=== PATIENT | male | born 1995 | race Caucasian/White ===

== ENCOUNTER 2017-02-28 21:25 | Emergency (ER) | payer OTHER ==
[~2017-02-28] VITALS: Ht 182.9 cm; Wt 128.1 kg
--- NOTE | 2017-02-28 21:40 | ED.ADGEN ---
Past History Past Medical History: Anxiety Past Surgical History: No Surgical History Alcohol Use: None Drug Use: None Adult General Chief Complaint Chief Complaint " I ve been short of breath all day.." HPI HPI Patient is a 22 year old male who presents with above hx and complaints of dyspnea. Pt. denies any trauma. Patient denies any ill contacts. Patient denies any travel. Patient denies previous history of asthma, bronchitis or cardiac conditions. Patient denies any recent fever and chills. Patient normally follows with Dr. Shea . There is family history of pulmonary embolisms with his father. Review of Systems Review of Systems Constitutional: Denies fever or chills [] Eyes: Denies change in visual acuity, redness, or eye pain [] HENT: Denies nasal congestion or sore throat [] Respiratory: Denies cough . Complaints of shortness of breath [] Cardiovascular: No additional information not addressed in HPI [] GI: Denies abdominal pain, nausea, vomiting, bloody stools or diarrhea [] : Denies dysuria or hematuria [] Musculoskeletal: Denies back pain or joint pain [] Integument: Denies rash or skin lesions [] Neurologic: Denies headache, focal weakness or sensory changes [] Endocrine: Denies polyuria or polydipsia [] All other systems were reviewed and found to be within normal limits, except as documented in this note. Family History Family History Father had Pulmonary Embolisms Current Medications Current Medications Current Medications Medications (Trade) Dose Ordered Sig/Gera Start Time Stop Time Status Last Admin Dose Admin Aspirin (Children'S Aspirin) 324 mg 1X ONCE 02/28/17 22:00 02/28/17 22:01 DC 02/28/17 22:12 324 MG Enoxaparin Sodium (Lovenox 150mg Syringe) 130 mg 1X ONCE 02/28/17 22:00 02/28/17 22:01 DC Sodium Chloride 1,000 ml @ 1,000 mls/hr Q1H 02/28/17 21:41 02/28/17 22:40 DC 02/28/17 22:12 1,000 MLS/HR Allergies Allergies Allergies Coded Allergies Type Severity Reaction Last Updated Verified Penicillins Allergy Intermediate rash 01/26/16 Yes Physical Exam Physical Exam Constitutional: Well developed, well nourished, no acute distress, non-toxic appearance. [] HENT: Normocephalic, atraumatic, bilateral external ears normal, oropharynx moist, no oral exudates, nose normal. [] Eyes: PERRLA, EOMI, conjunctiva normal, no discharge. [] Neck: Normal range of motion, no tenderness, supple, no stridor. [] Cardiovascular:Heart rate regular rhythm, no murmur [] Lungs & Thorax: Bilateral breath sounds equal and few scattered wheezes on auscultation [] Abdomen: Bowel sounds normal, soft, no tenderness, no masses, no pulsatile masses. [] Skin: Warm, dry, no erythema, no rash. [] Back: No tenderness, no CVA tenderness. [] Extremities: No tenderness, no cyanosis, no clubbing, ROM intact, no edema. No cording Neurologic: Alert and oriented X 3, normal motor function, normal sensory function, no focal deficits noted. [] Psychologic: Affect normal, judgement normal, mood normal. [] Current Patient Data Lab Results Laboratory Tests Test 02/28/17 21:57 02/28/17 22:06 White Blood Count 10.1 x10^3/uL (4.0-11.0) Red Blood Count 4.91 x10^6/uL (4.30-5.70) Hemoglobin 14.8 g/dL (13.0-17.5) Hematocrit 43.5 % (39.0-53.0) Mean Corpuscular Volume 89 fL (79-100) Mean Corpuscular Hemoglobin 30 pg (25-35) Mean Corpuscular Hemoglobin Concent 34 g/dL (31-37) Red Cell Distribution Width 12.8 % (11.5-14.5) Platelet Count 226 x10^3/uL (140-400) Neutrophils (%) (Auto) 54 % (31-73) Lymphocytes (%) (Auto) 36 % (24-48) Monocytes (%) (Auto) 7 % (0-9) Eosinophils (%) (Auto) 2 % (0-3) Basophils (%) (Auto) 1 % (0-3) Neutrophils # (Auto) 5.5 x10^3uL (1.8-7.7) Lymphocytes # (Auto) 3.6 x10^3/uL (1.0-4.8) Monocytes # (Auto) 0.7 x10^3/uL (0.0-1.1) Eosinophils # (Auto) 0.2 x10^3/uL (0.0-0.7) Basophils # (Auto) 0.1 x10^3/uL (0.0-0.2) Prothrombin Time 10.6 SEC (9.4-11.4) Prothrombin Time INR 1.0 (0.9-1.1) PTT 25 SEC (23-33) D-Dimer (Carmen) 0.45 mg/L (0.00-0.50) Sodium Level 140 mmol/L (136-145) Potassium Level 3.5 mmol/L (3.5-5.1) Chloride Level 102 mmol/L (98-107) Carbon Dioxide Level 28 mmol/L (21-32) Anion Gap 10 (6-14) Blood Urea Nitrogen 16 mg/dL (8-26) Creatinine 1.1 mg/dL (0.7-1.3) Estimated GFR (Cockcroft-Gault) 83.0 Glucose Level 120 mg/dL (70-99) H Calcium Level 8.8 mg/dL (8.5-10.1) Magnesium Level 1.8 mg/dL (1.8-2.4) Total Bilirubin 0.3 mg/dL (0.2-1.0) Direct Bilirubin 0.1 mg/dL (0.0-0.2) Aspartate Amino Transferase (AST) 36 U/L (15-37) Alanine Aminotransferase (ALT) 104 U/L (16-63) H Alkaline Phosphatase 58 U/L (46-116) Creatine Kinase 583 U/L (39-308) H Creatine Kinase MB (Mass) 1.4 ng/mL (0.0-3.6) Creatine Kinase MB Relative Index 0.2 % (0-4) Troponin I Quantitative < 0.017 ng/mL (0-0.055) KH-Jyy-L-Type Natriuretic Peptide 11 pg/mL (0-124) Total Protein 7.3 g/dL (6.4-8.2) Albumin 3.9 g/dL (3.4-5.0) Lipase 112 U/L (73-393) Urine Collection Type Unknown Urine Color Yellow Urine Clarity Clear Urine pH 6.0 Urine Specific [place] >=1.030 Urine Protein Neg (NEG-TRACE) Urine Glucose (UA) Neg mg/dL (NEG) Urine Ketones (Stick) Neg mg/dL (NEG) Urine Blood Trace (NEG) Urine Nitrite Neg (NEG) Urine Bilirubin Neg (NEG) Urine Urobilinogen Dipstick 0.2 mg/dL (0.2 mg/dL) Urine Leukocyte Esterase Neg (NEG) Urine RBC 1-2 /HPF (0-2) Urine WBC 1-4 /HPF (0-4) Urine Squamous Epithelial Cells Few /LPF Urine Bacteria 0 /HPF (0-FEW) Urine Opiates Screen Neg (NEG) Urine Methadone Screen Neg (NEG) Urine Barbiturates Neg (NEG) Urine Phencyclidine Screen Neg (NEG) Urine Amphetamine/Methamphetamine Neg (NEG) Urine Benzodiazepines Screen Neg (NEG) Urine Cocaine Screen Neg (NEG) Urine Cannabinoids Screen Neg (NEG) Urine Ethyl Alcohol Neg (NEG) EKG EKG My interpretation of EKG shows a sinus rhythm with no findings acute STEMI. Sinus rate of 87 bpm.[] Radiology/Procedures Radiology/Procedures I interpretation chest x-ray shows no acute cardiopulmonary findings[] Course & Med Decision Making Course & Med Decision Making Pertinent Labs and Imaging studies reviewed. (See chart for details). Patient take a daily aspirin. Patient follow-up primary care. Patient return of any concerns. [] Final Impression Final Impression 1. Dyspnea[] 2. Viral syndrome 3. Anxiety disorder Problems: Dragon Disclaimer Dragon Disclaimer This electronic medical record was generated, in whole or in part, using a voice recognition dictation system. NANCY ZAMORA MD Feb 28, 2017 21:40
[2017-02-28] MEDS ORDERED: IV NORMAL SALINE 1,000ML 1,000 ML IV SCH (21:41)
[2017-02-28] MEDS ORDERED: ASPIRIN 81 MG TAB.CHEW PO ONE (22:00)
[2017-02-28] MEDS ORDERED: ENOXAPARIN ** NOTE DOSE ** SYRINGE SQ ONE (22:00)
[2017-02-28 22:16] LABS: BASO # 0.1 x10^3/uL (0.0-0.2); BASO % 1 % (0-3); EOS # 0.2 x10^3/uL (0.0-0.7); EOS % 2 % (0-3); HEMATOCRIT 43.5 % (39.0-53.0); HEMOGLOBIN 14.8 g/dL (13.0-17.5); LYMPH # 3.6 x10^3/uL (1.0-4.8); LYMPH % 36 % (24-48); MEAN CORPUSCULAR HEMOGLOBIN 30 pg (25-35); MEAN CORPUSCULAR HGB CONC 34 g/dL (31-37); MEAN CORPUSCULAR VOLUME 89 fL (79-100); MONO # 0.7 x10^3/uL (0.0-1.1); MONO % 7 % (0-9); NEUT # 5.5 x10^3uL (1.8-7.7); NEUT % 54 % (31-73); PLATELET COUNT 226 x10^3/uL (140-400); RED BLOOD COUNT 4.91 x10^6/uL (4.30-5.70); RED CELL DISTRIBUTION WIDTH 12.8 % (11.5-14.5); WHITE BLOOD COUNT 10.1 x10^3/uL (4.0-11.0)
[2017-02-28 22:29] LABS: AMPHETAMINE/METHAMPHETAMINE NEG (NEG); BARBITURATES NEG (NEG); BENZODIAZEPINES NEG (NEG); CANNABINOIDS NEG (NEG); COCAINE NEG (NEG); METHADONE NEG (NEG); OPIATES NEG (NEG); PHENCYCLIDINE NEG (NEG)
[2017-02-28 22:35] LABS: ALBUMIN 3.9 g/dL (3.4-5.0); CALCIUM 8.8 mg/dL (8.5-10.1); CREATININE 1.1 mg/dL (0.7-1.3); DIRECT BILIRUBIN 0.1 mg/dL (0.0-0.2); MAGNESIUM 1.8 mg/dL (1.8-2.4); POTASSIUM 3.5 mmol/L (3.5-5.1); TOTAL BILIRUBIN 0.3 mg/dL (0.2-1.0); TOTAL PROTEIN 7.3 g/dL (6.4-8.2)
[2017-02-28 22:42] LABS: BACTERIA,URINE 0 /HPF (0-FEW); BILIRUBIN,URINE NEG (NEG); CLARITY,URINE CLEAR; COLOR,URINE YELLOW; GLUCOSE,URINE NEG (NEG); NITRITE,URINE NEG (NEG); SQUAMOUS EPITHELIAL CELL,UR FEW /LPF; UROBILINOGEN,URINE 0.2 mg/dL (0.2 mg/dL)
[2017-02-28 23:01] VITALS: BP 137/74
--- NOTE | 2017-02-28 23:13 | EKG ---
[address] [address] Test Date: 2017-02-28 Test Time: 21:38:32 Pat Name: JACEKLIN KIRKLAND Department: Room: Gender: M Customer Retention Representative: ADELAIDA : 1995 Requested By: NANCY ZAMORA Order Number: [id number] Reading MD: Prosper Akers MD Measurements Intervals Lindsay Rate: 87 P: 42 NH: 176 QRS: 35 QRSD: 98 T: 24 QT: 318 QTc: 383 Interpretive Statements SINUS RHYTHM NON-SPECIFIC ST/T CHANGES Electronically Signed On 03-08-2017 14:24:19 CODE MACHINE OPERATOR by Prosper Akers MD
--- NOTE | 2017-03-01 08:11 | RAD ---
2 view chest 02/28/2017 Clinical indication: Dyspnea. Comparison: None. Findings: Patient is rotated. Cardiac and mediastinal silhouettes are unremarkable. No pleural effusion or pneumothorax or focal consolidation. Impression: No acute cardiopulmonary abnormality.
== END 2017-02-28 23:03 | disposition home or self-care (01) ==
LOC: ER 21:25
DX: R06.00 Dyspnea, unspecified (principal); B34.9 Viral infection, unspecified; F41.9 Anxiety disorder, unspecified; Z88.0 Allergy status to penicillin
CPT/HCPCS: 36415; 71046; 80048; 80076; 80307; 81001; 82553; 83690; 83735; 83880; 84443; 84484; 85025; 85379; 85610; 85730; 93005; 96360; 99285-25; G0479; J7030

== ENCOUNTER → 2017-04-24 | Outpatient (CLI) | payer OTHER ==
--- NOTE | 2017-04-25 07:31 | RAD ---
Lumbar spine, 3 views, 04/24/2017: History: Low back pain, injury The lumbar vertebral heights are well-maintained. The intervertebral disc spaces are well preserved. There is minimal endplate irregularity on a developmental basis. There is minimal marginal spurring. No fracture or dislocation is identified. The paraspinous soft tissues are unremarkable. IMPRESSION: No acute lumbar spine abnormality is detected.
== END | disposition home or self-care (01) ==
LOC: RAD 16:30
PROVIDERS: ATTEND General Practice
DX: S30.0XXA Contusion of lower back and pelvis, initial encounter (principal); X58.XXXA Exposure to other specified factors, initial encounter; Y93.89 Activity, other specified; Y92.89 Other specified places as the place of occurrence of the external cause; Y99.8 Other external cause status
CPT/HCPCS: 72100

== ENCOUNTER → 2018-10-10 | Outpatient (CLI) | payer OTHER ==
--- NOTE | 2018-10-10 13:08 | RAD ---
VENOUS LOWER EXTREMITY RIGHT History: Right leg swelling and pain. Elevated d-dimer. Comparison: None. Discussion: Multiple longitudinal and transverse high resolution real-time images of the venous system of right lower extremity were obtained with color and Doppler sampling. The common femoral, superficial femoral, popliteal and proximal calf veins are all patent and demonstrate normal flow and compressibility. Normal respiratory phasicity and augmentation is present. Noncompressibility of the right distal greater saphenous vein and mid to distal small saphenous vein with limited flow. Impression: 1. Nonocclusive superficial vein thrombus within the distal greater saphenous vein and mid to distal small saphenous vein. No evidence of deep vein thrombosis. Attempts were made to contact the office at time of dictation. Electronically signed by: Jp Eugene DO (10/10/2018 1:05 PM) [facility] [id number]
== END | disposition home or self-care (01) ==
LOC: CT 11:49 → EDSTATUS 11:50 → CT 11:50
PROVIDERS: ATTEND Physician Assistant
DX: I82.811 Embolism and thrombosis of superficial veins of right lower extremity (principal)
CPT/HCPCS: 93971